=== PATIENT | male | born 1995 | race Caucasian/White ===

== ENCOUNTER 2017-03-15 00:31 | Emergency (ER) | payer OTHER ==
[2017-03-15] MEDS ORDERED: NS 1,000 ML IV ONE ×3 (00:40→01:53)
--- NOTE | 2017-03-15 00:40 | EDPHY ---
H & P Stated Complaint: fever, chills, and cough HPI/ROS: HPI CHIEF COMPLAINT: I feel like I have the flu HISTORY OF PRESENT ILLNESS: This patient 21-year-old male he is otherwise healthy no significant medical history he is immunocompetent, presents emergency room with flu-like illness. He states for the past 48 hr he has been feeling ill. He states that fatigue, muscle aches, joint pain, fever, chills and a dry cough. Denies chest pain or shortness of breath. No vomiting no diarrhea. Past Medical History: No significant medical history Past Surgical History: No significant surgical history Social History: Lives locally, denies drugs alcohol tobacco. [employer] student. Family History: Noncontributory ROS REVIEW OF SYSTEMS: A comprehensive 10 point review of systems is otherwise negative aside from elements mentioned in the history of present illness. Exam Constitutional appears well nontoxic no acute distress, triage nursing summary reviewed, vital signs reviewed, awake/alert. Vital signs noted triage 39 temp. Eyes normal conjunctivae and sclera, EOMI, PERRLA. HENT normal inspection, atraumatic, moist mucus membranes, no epistaxis, neck supple/ no meningismus, no raccoon eyes. Respiratory clear to auscultation bilaterally, normal breath sounds, no respiratory distress, no wheezing. Cardiovascular rate normal, regular rhythm, no murmur, no edema, distal pulses normal. Gastrointestinal soft, non-tender, no rebound, no guarding, normal bowel sounds, no distension, no pulsatile mass. Genitourinary no CVA tenderness. Musculoskeletal no midline vertebral tenderness, full range of motion, no calf swelling, no tenderness of extremities, no meningismus, good pulses, neurovascularly intact. Skin pink, warm, & dry, no rash, skin atraumatic. Neurologic awake, alert and oriented x 3, AAOx3, moves all 4 extremities equally, motor intact, sensory intact, CN II-XII intact, normal cerebellar, normal vision, normal speech. Psychiatric normal mood/affect. Heme/Lymph/Immune no lymphadenopathy. Differential Diagnosis: Includes but is not limited to in a particular order acute febrile illness, viral syndrome, upper respiratory tract infection, influenza Medical Decision Making: Plan for this patient IV establishment fluid bolus, 1 L normal saline, ibuprofen 800 mg for fever and pain control, check influenza and basic blood work and re-evaluate. Re-evaluation: 0138: Patient is influenza a positive. Will give 1st dose of Tamiflu here in emergency room. Tamiflu prescription. Recommend lots of fluids stay well-hydrated drink lots of Gatorade water. Alternate Tylenol Motrin for fever pain control. Patient understands Additionally return precautions discussed with the patient. Understands return emergency room if high fever vomiting not feeling well. Source: Patient - Personal History Current Tetanus/Diphtheria Vaccine: Yes Current Tetanus Diphtheria and Acellular Pertussis (TDAP): Yes - Medical/Surgical History Hx Asthma: No Hx Chronic Respiratory Disease: No Hx Diabetes: No Hx Cardiac Disease: No Hx Renal Disease: No Hx Cirrhosis: No Hx Alcoholism: No Hx HIV/AIDS: No Hx Splenectomy or Spleen Trauma: No Other PMH: wisdom teeth - Social History Smoking Status: Former smoker Constitutional: Initial Vital Signs Temperature (C) 39.0 C H 03/15/17 00:36 Heart Rate 115 H 03/15/17 00:36 Respiratory Rate 18 03/15/17 00:36 Blood Pressure 116/69 03/15/17 00:36 O2 Sat (%) 97 03/15/17 00:36 O2 Delivery Mode Room Air Allergies/Adverse Reactions: No Known Allergies Allergy (Unverified 03/15/17 00:39) Home Medications: Medication Instructions Recorded Oseltamivir Phosphate [Tamiflu 75 75 mg PO BID #10 cap 03/15/17 mg (*)] Valacyclovir 03/15/17 Medical Decision Making - Data Points Laboratory Results: Laboratory Results 03/15/17 00:56 03/15/17 00:56 03/15/17 03/15/17 03/15/17 00:56 00:56 00:40 WBC 9.85 10^3/uL H 10^3/uL (3.80-9.50) RBC 4.37 10^6/uL L 10^6/uL (4.40-6.38) Hgb 13.5 g/dL L g/dL (13.7-17.5) Hct 38.0 % L % (40.0-51.0) MCV 87.0 fL fL (81.5-99.8) MCH 30.9 pg pg (27.9-34.1) MCHC 35.5 g/dL g/dL (32.4-36.7) RDW 12.1 % % (11.5-15.2) Plt Count 243 10^3/uL 10^3/uL (150-400) MPV 9.2 fL fL (8.7-11.7) Neut % (Auto) 76.7 % H % (39.3-74.2) Lymph % (Auto) 11.8 % L % (15.0-45.0) Cass % (Auto) 9.4 % % (4.5-13.0) Eos % (Auto) 0.6 % % (0.6-7.6) Baso % (Auto) 1.1 % % (0.3-1.7) Nucleat RBC Rel Count 0.0 % % (0.0-0.2) Absolute Neuts (auto) 7.55 10^3/uL H 10^3/uL (1.70-6.50) Absolute Lymphs (auto) 1.16 10^3/uL 10^3/uL (1.00-3.00) Absolute Monos (auto) 0.93 10^3/uL H 10^3/uL (0.30-0.80) Absolute Eos (auto) 0.06 10^3/uL 10^3/uL (0.03-0.40) Absolute Basos (auto) 0.11 10^3/uL H 10^3/uL (0.02-0.10) Absolute Nucleated RBC 0.00 10^3/uL 10^3/uL (0-0.01) Immature Gran % 0.4 % % (0.0-1.1) Immature Gran # 0.04 10^3/uL 10^3/uL (0.00-0.10) Sodium 139 mEq/L mEq/L (135-145) Potassium 3.6 mEq/L mEq/L (3.5-5.2) Chloride 103 mEq/L mEq/L (97-110) Carbon Dioxide 19 mEq/l L mEq/l (22-31) Anion Gap 17 mEq/L H mEq/L (8-16) BUN 10 mg/dL mg/dL (7-23) Creatinine 1.1 mg/dL mg/dL (0.7-1.3) Estimated GFR > 60 Glucose 86 mg/dL mg/dL (70-100) Calcium 9.8 mg/dL mg/dL (8.5-10.4) Nasal Influenza A PCR FLU A DETECTED H (NEGATIVE) Nasal Influenza B PCR NEGATIVE FOR FLU B (NEGATIVE) Medications Given: Discontinued Medications Sodium Chloride (Ns) 1,000 mls @ 0 mls/hr IV EDNOW ONE; Wide Open PRN Reason: Protocol Stop: 03/15/17 00:41 Last Admin: 03/15/17 00:51 Dose: 1,000 mls Ibuprofen (Motrin) 800 mg PO EDNOW ONE Stop: 03/15/17 00:42 Last Admin: 03/15/17 00:51 Dose: 800 mg Departure - Departure Disposition: Home, Routine, Self-Care Clinical Impression: Influenza A Condition: Good Instructions: Influenza (ED) Additional Instructions: 1. Drink lots of fluids stay well-hydrated 2. Alternate Tylenol Motrin for fever control. 3. Tamiflu as prescribed. 4. Return emergency room if you have worsening symptoms questions or concerns. Referrals: Patient,NotPresent [Unknown] - As per Instructions Prescriptions: Oseltamivir Phosphate [Tamiflu 75 mg (*)] 75 mg PO BID #10 cap
[2017-03-15] MEDS ORDERED: IBUPROFEN 800 MG TAB PO ONE (00:41)
[2017-03-15 01:02] LABS: PLATELET COUNT 243 10^3/uL (150-400)
[2017-03-15] MEDS ORDERED: OSELTAMIVIR PHOSPHATE 75 MG CAP PO ONE (01:38)
[2017-03-15 01:55] VITALS: TEMP 99.7
[2017-03-15 02:28] VITALS: BP 112/74; PULSE 90; RESP 20; O2SAT 96
== END 2017-03-15 02:28 | disposition home or self-care (01) ==
DX: J10.1 Influenza due to other identified influenza virus with other respiratory manifestations (principal); E86.9 Volume depletion, unspecified; Z87.891 Personal history of nicotine dependence